=== PATIENT | male | born 1990 | race Caucasian/White ===

== ENCOUNTER 2021-08-25 14:05 | Emergency (ER) | payer OTHER ==
[2021-08-25 14:25] VITALS: BP 139/80; PULSE 74; RESP 19; TEMP 98.5
[2021-08-25] MEDS ORDERED: LIDOCAINE 1% INJ 10MG/ML (20 ML MDV) SQ ONE (18:31)
[2021-08-25] MEDS ORDERED: BACITRACIN OINT 1 EACH PACKET TOPICAL ONE (18:31)
--- NOTE | 2021-08-25 20:13 | ED ---
General Adult HPI - General Chief complaint: Wound/Laceration Stated complaint: finger lac Time Seen by Provider: 08/25/21 16:37 Source: patient Mode of arrival: ambulatory Limitations: no limitations - History of Present Illness Initial comments: 31-year-old male presents to the emergency department for evaluation of 3rd finger laceration on the left hand. Patient states he cut his finger on a clean kitchen knife while piercing through plastic this afternoon. Patient denies any loss of sensation or movement. Complains of minimal discomfort. Denies any further injury at this time. - Related Data Home Medications Medication Instructions Recorded Confirmed No Known Home Medications 08/25/21 08/25/21 Allergies Allergy/AdvReac Type Severity Reaction Status Date / Time No Known Allergies Allergy Verified 08/25/21 18:24 Review of Systems ROS Statement: Those systems with pertinent positive or pertinent negative responses have been documented in the HPI. ROS Other: All systems not noted in ROS Statement are negative. Past Medical History Past Medical History: No Reported History History of Any Multi-Drug Resistant Organisms: None Reported Past Surgical History: No Surgical Hx Reported Past Psychological History: No Psychological Hx Reported Smoking Status: Never smoker Past Alcohol Use History: None Reported Past Drug Use History: None Reported General Exam Limitations: no limitations (Developed, well-nourished male in no acute distress. Initial temperature 98.5, pulse 74, respirations 19, blood pressure 139/80, pulse ox 97% on room air.) General appearance: alert, in no apparent distress Respiratory exam: Present: normal lung sounds bilaterally. Absent: respiratory distress, wheezes, rales, rhonchi, stridor Cardiovascular Exam: Present: regular rate, normal rhythm, normal heart sounds. Absent: systolic murmur, diastolic murmur, rubs, gallop, clicks Left Hand Wrist exam: Present: full ROM, laceration. Absent: tenderness, swelling, deformity (1 cm laceration to the dorsal surface of the middle phalanx on the left hand) Neuro motor exam: Present: thumb opposition intact, fingers 2-5 abduction intact Vascular: Present: normal capillary refill, radial pulse, brachial pulse, ulnar pulse. Absent: vascular compromise, Pallo Neurological exam: Present: alert, oriented X3, CN II-XII intact Psychiatric exam: Present: normal affect, normal mood Course Vital Signs 08/25/21 14:23 Temperature 98.5 F Pulse Rate 74 Respiratory 19 Rate Blood Pressure 139/80 O2 Sat by Pulse 97 Oximetry Procedures - Laceration Laceration #1 Consent Obtained: verbal consent Indication: laceration Site: hand (Middle phalanx of the third digit, left hand) Size (cm): 1 Description: linear Depth: simple, single layer Anesthetic Used: lidocaine 1% Anesthesia Technique: local infiltration Amount (mls): 1 Pre-repair: wound explored, irrigated extensively Type of Sutures: nylon Size of Sutures: 5-0 Number of Sutures: 2 Technique: simple, interrupted Patient Tolerated Procedure: well, no complications Additional Comments: Wound care reviewed with patient. Instructed to have sutures removed in 7-10 days. Medical Decision Making - Medical Decision Making 31-year-old male presents to the emergency department for evaluation of a 1 cm laceration to the middle phalanx, third digit, dorsal surface of the left hand. Injury occurred while cutting through plastic using a clean kitchen knife. Range of motion and sensation intact distal to wound. No tendon or vascular compromise. Complains of minimal discomfort. Wound was thoroughly irrigated, to use sutures placed; tolerated procedure well. Bacitracin dressing applied. Wound care reviewed with patient. Instructed to have sutures out in 7-10 days. Return parameters were discussed in detail. Patient verbalizes understanding and agrees with this plan. This patient's care was discussed with my attending Dr. Bingham. Disposition Clinical Impression: Laceration of finger of left hand Disposition: HOME SELF-CARE Condition: Stable Instructions (If sedation given, give patient instructions): Care For Your Stitches (ED), Laceration (ED) Additional Instructions: Keep wound clean and dry. Apply antibiotic ointment with daily dressing changes. Sutures out in 7-10 days. Return to the emergency department with any new, worsening, or concerning symptoms. Is patient prescribed a controlled substance at d/c from ED?: No Referrals: Deshawn Martinez MD [Primary Care Provider] - 1-2 days
== END 2021-08-25 20:25 | disposition home or self-care (01) ==
LOC: EC 14:05
DX: S61.213A Laceration without foreign body of left middle finger without damage to nail, initial encounter (principal); W26.0XXA Contact with knife, initial encounter; Y92.000 Kitchen of unspecified non-institutional (private) residence as the place of occurrence of the external cause
CPT/HCPCS: 12001; 99282; J2001